=== PATIENT | female | born 1930 | race Caucasian/White ===

== ENCOUNTER 2021-02-22 14:07 | Inpatient (IN) | payer OTHER ==
[2021-02-22] MEDS ORDERED: ACETAMINOPHEN 1000 MG/100 ML VIAL IVPB ONE (15:46)
[2021-02-22] MEDS ORDERED: SODIUM CHLORIDE 1,402 ML IV ONE (15:46)
[2021-02-22] MEDS ORDERED: TRIAMCINOLONE ACET 0.1% OINT 15 GM TUBE TP ONE (16:10)
[2021-02-22 16:13] LABS: BASO % 0.5 % (0-2.0); EOS % 5.9 % (0-4.5); HEMATOCRIT 19.5 % (32.4-45.2); LYMPH % 21.3 % (8-40); MCHC 29.6 g/dl (32.0-36.0); MEAN CELL VOLUME 63.6 fl (80-96); MEAN PLT VOLUME 8.4 fl (7.5-11.1); MONO % 11.9 % (3.8-10.2); NEUT % 60.4 % (42.8-82.8); PLATELET COUNT 416 10^3/uL (134-434); RBC 3.07 M/mm3 (3.60-5.2); RDW 21.2 % (11.6-15.6); WHITE BLOOD COUNT 7.3 K/mm3 (4.0-10.0)
[2021-02-22 16:21] LABS: INR 1.05 (0.83-1.09); PROTHROMBIN TIME (PATIENT) 11.8 SEC (9.7-13.0)
[2021-02-22 16:23] LABS: MCH 18.8 pg (25.7-33.7)
[2021-02-22 16:24] LABS: ACTIVATED PTT 24.5 SECONDS (25.2-36.5)
[2021-02-22 16:25] LABS: HEMOGLOBIN 5.8 GM/dL (10.7-15.3)
[2021-02-22 16:26] LABS: EPI CELLS 34 /uL (0-25.1); HYALINE CASTS 3 /uL (0-3.1); PH,URINE 5.5 (5.0-8.0); URINE APPEARANCE CLOUDY; URINE BACTERIA >9,000 /uL (0-1359); URINE BILIRUBIN NEGATIVE (NEGATIVE); URINE COLOR YELLOW; URINE GLUCOSE (UA) NEGATIVE (NEGATIVE); URINE KETONE TRACE (NEGATIVE); URINE LEUK ESTERASE 1+ (NEGATIVE); URINE NITRITE NEGATIVE (NEGATIVE); URINE PROTEIN NEGATIVE (NEGATIVE); URINE UROBILINOGEN 0.2 mg/dL (0.2-1.0); URINE WBC 65 /uL (0-25.8)
[2021-02-22 16:36] LABS: CHLORIDE 109 mmol/L (98-107); SODIUM 140 mmol/L (136-145)
[2021-02-22 16:38] LABS: CALCIUM 7.9 mg/dL (8.5-10.1)
[2021-02-22 16:39] LABS: ALBUMIN 1.7 g/dl (3.4-5.0); ANION GAP 4 MMOL/L (8-16); BLOOD UREA NITROGEN 26.7 mg/dL (7-18); CO2 27 mmol/L (21-32); GLUCOSE,RANDOM 98 mg/dL (74-106); MAGNESIUM 2.3 mg/dL (1.8-2.4)
[2021-02-22 16:42] LABS: CREATININE 0.8 mg/dL (0.55-1.3); SGOT/AST 17 U/L (15-37); SGPT/ALT 11 U/L (13-61)
[2021-02-22 16:44] LABS: ALK PHOS 68 U/L (45-117); BILIRUBIN,TOTAL 0.2 mg/dL (0.2-1); TOT PROT 5.8 g/dl (6.4-8.2)
[2021-02-22] MEDS ORDERED: ACETAMINOPHEN INJECTION 100 ML IVPB ONE (16:44)
[2021-02-22] MEDS ORDERED: AZITHROMYCIN IVPB 500 MG in DEXTROSE 5%-WATER - 250 ML IVPB ONE (16:56)
[2021-02-22] MEDS ORDERED: CEFTRIAXONE 1,000 MG in DEXTROSE 5%-WATER - 50 ML IVPB ONE (16:56)
[2021-02-22] MEDS ORDERED: CEFTRIAXONE 1 GM/50 ML BAG ONE (17:16)
[2021-02-22] MEDS ORDERED: AZITHROMYCIN IVPB 500 MG/250 ML BAG IVPB ONE (17:16)
[2021-02-22] MEDS ORDERED: ALBUTEROL SO4 2.5/IPRATROPIUM 0.5 INH SOL 3 ML VIAL.NEB. NEB ONE ×2 (17:26→18:03)
[2021-02-22 18:01] LABS: ANISOCYTOSIS 3+; MACROCYTOSIS 1+; OVALOCYTE 1+; PLATELET ESTIMATE NORMAL
[2021-02-22 18:50] LABS: URINE RBC 19.5 /uL (0-23.9)
[2021-02-22] MEDS ORDERED: ACETAMINOPHEN 1000 MG/100 ML VIAL IVPB PRN (20:34)
[2021-02-22] MEDS ORDERED: PANTOPRAZOLE SODIUM 40 MG VIAL IVPUSH SCH (22:00)
[2021-02-22] MEDS ORDERED: ALBUTEROL SO4 2.5/IPRATROPIUM 0.5 INH SOL 3 ML VIAL.NEB. NEB PRN (22:56)
[2021-02-23 03:41] VITALS: BMI 24.6
[2021-02-23 08:45] LABS: BASO % 0.6 % (0-2.0); EOS % 5.7 % (0-4.5); HEMATOCRIT 29.1 % (32.4-45.2); HEMOGLOBIN 9.4 GM/dL (10.7-15.3); LYMPH % 15.4 % (8-40); MCHC 32.4 g/dl (32.0-36.0); MEAN CELL VOLUME 70.8 fl (80-96); MEAN PLT VOLUME 8.9 fl (7.5-11.1); MONO % 8.5 % (3.8-10.2); NEUT % 69.8 % (42.8-82.8); PLATELET COUNT 359 10^3/uL (134-434); RBC 4.11 M/mm3 (3.60-5.2); WHITE BLOOD COUNT 8.4 K/mm3 (4.0-10.0)
[2021-02-23 08:59] LABS: CALCIUM 7.7 mg/dL (8.5-10.1)
[2021-02-23 09:03] LABS: CREATININE 0.6 mg/dL (0.55-1.3)
[2021-02-23] MEDS ORDERED: PT OWN MED DRAWER 7, Y5N ONE ×3 (09:11→22:31)
[2021-02-23] MEDS: MULTIVITAMINS THER W-MINERALS COMBO TABLET (FP) PO SCH (09:21)
[2021-02-23] MEDS: OXYBUTYNIN CHLORIDE 5 MG TABLET PO SCH ×2 (09:21→22:34)
[2021-02-23] MEDS: FERROUS SO4 325 MG TABLET (FP) PO SCH (09:21)
[2021-02-23] MEDS: metoPROLOL SUCCINATE 25 MG TAB.SR.24H (FP) PO SCH (09:21)
[2021-02-23] MEDS ORDERED: FAMOTIDINE 20 MG TABLET PO SCH (10:00)
[2021-02-23] MEDS: POLYETHYLENE GLYCOL (HEALTHYLAX) 3350 17 GM PACKET PO SCH ×2 (14:36→22:34)
[2021-02-23] MEDS: CLOTRIMAZOLE 1% CREAM TP SCH ×2 (14:36→22:35)
[2021-02-23] MEDS ORDERED: cefTRIAXone SODIUM 1 GM VIAL ONE (15:20)
[2021-02-23] MEDS ORDERED: DEXTROSE 5%-WATER - 50 ML IVPB ONE (15:20)
[2021-02-23] MEDS: CEFTRIAXONE 1 GM in DEXTROSE 5%-WATER - 50 ML IVPB SCH (15:25)
[2021-02-23] MEDS ORDERED: SODIUM CHLORIDE 1,000 ML IV SCH (16:00)
[2021-02-23] MEDS ORDERED: TRIAMCINOLONE ACET 0.1% OINT 15 GM TUBE TP ONE (16:10)
[2021-02-23] MEDS: AZITHROMYCIN IVPB 500 MG/250 ML BAG IVPB SCH (17:03)
[2021-02-23] MEDS ORDERED: DOCUSATE SODIUM 100 MG CAPSULE (FP) PO SCH (22:00)
[2021-02-23] MEDS: ATORVASTATIN CA 10 MG TABLET (FP) PO SCH (22:34)
[2021-02-24] MEDS: POLYETHYLENE GLYCOL (HEALTHYLAX) 3350 17 GM PACKET PO SCH ×3 (06:28→22:05)
[2021-02-24 10:05] LABS: BASO % 0.4 % (0-2.0); EOS % 5.2 % (0-4.5); HEMATOCRIT 30.4 % (32.4-45.2); HEMOGLOBIN 9.6 GM/dL (10.7-15.3); LYMPH % 13.4 % (8-40); MCHC 31.4 g/dl (32.0-36.0); MEAN CELL VOLUME 73.1 fl (80-96); MEAN PLT VOLUME 8.8 fl (7.5-11.1); MONO % 7.3 % (3.8-10.2); NEUT % 73.7 % (42.8-82.8); PLATELET COUNT 396 10^3/uL (134-434); RBC 4.16 M/mm3 (3.60-5.2); RDW 26.7 % (11.6-15.6); RETICULOCYTES 3.01 % (0.5-1.5); WHITE BLOOD COUNT 8.5 K/mm3 (4.0-10.0)
[2021-02-24] MEDS ORDERED: PT OWN MED DRAWER 7, Y5N ONE ×2 (10:07→22:02)
[2021-02-24] MEDS ORDERED: DEXTROSE 5%-WATER - 50 ML IVPB ONE (10:08)
[2021-02-24] MEDS ORDERED: cefTRIAXone SODIUM 1 GM VIAL ONE (10:08)
[2021-02-24 10:15] LABS: INR 1.12 (0.83-1.09); PROTHROMBIN TIME (PATIENT) 12.6 SEC (9.7-13.0)
[2021-02-24] MEDS: CEFTRIAXONE 1 GM in DEXTROSE 5%-WATER - 50 ML IVPB SCH (10:20)
[2021-02-24] MEDS: metoPROLOL SUCCINATE 25 MG TAB.SR.24H (FP) PO SCH (10:22)
[2021-02-24] MEDS: CLOTRIMAZOLE 1% CREAM TP SCH ×2 (10:22→20:50)
[2021-02-24] MEDS: FERROUS SO4 325 MG TABLET (FP) PO SCH (10:22)
[2021-02-24] MEDS: MULTIVITAMINS THER W-MINERALS COMBO TABLET (FP) PO SCH (10:22)
[2021-02-24] MEDS: OXYBUTYNIN CHLORIDE 5 MG TABLET PO SCH ×2 (10:22→22:04)
[2021-02-24] MEDS: PANTOPRAZOLE 40 MG TABLET PO SCH (10:22)
[2021-02-24] MEDS: AZITHROMYCIN IVPB 500 MG/250 ML BAG IVPB SCH ×2 (10:24→11:58)
[2021-02-24] MEDS ORDERED: IRON SUCROSE INJECTION 200 MG in SODIUM CHLORIDE 90 ML IVPB ONE (17:00)
[2021-02-24] MEDS ORDERED: PERMETHRIN 5% TOPICAL CREAM 60 GM TUBE TP ONE (19:01)
[2021-02-24] MEDS: ATORVASTATIN CA 10 MG TABLET (FP) PO SCH (22:05)
[2021-02-25] MEDS: POLYETHYLENE GLYCOL (HEALTHYLAX) 3350 17 GM PACKET PO SCH ×3 (06:03→21:23)
[2021-02-25 08:07] LABS: CARCINOEMBRYONIC ANTIGEN 14.9 ng/mL (0.0-4.7)
[2021-02-25 10:06] LABS: BASO % 0.5 % (0-2.0); EOS % 1.9 % (0-4.5); HEMATOCRIT 33.2 % (32.4-45.2); HEMOGLOBIN 10.5 GM/dL (10.7-15.3); LYMPH % 10.8 % (8-40); MCH 22.9 pg (25.7-33.7); MCHC 31.6 g/dl (32.0-36.0); MEAN CELL VOLUME 72.2 fl (80-96); MEAN PLT VOLUME 8.4 fl (7.5-11.1); MONO % 6.8 % (3.8-10.2); PLATELET COUNT 426 10^3/uL (134-434); RDW 27.5 % (11.6-15.6); WHITE BLOOD COUNT 8.9 K/mm3 (4.0-10.0)
[2021-02-25] MEDS ORDERED: PT OWN MED DRAWER 7, Y5N ONE ×2 (10:17→21:18)
[2021-02-25 10:18] LABS: CALCIUM 8.1 mg/dL (8.5-10.1)
[2021-02-25 10:20] LABS: BLOOD UREA NITROGEN 10.9 mg/dL (7-18)
[2021-02-25 10:22] LABS: CREATININE 0.6 mg/dL (0.55-1.3)
[2021-02-25] MEDS: OXYBUTYNIN CHLORIDE 5 MG TABLET PO SCH ×2 (10:24→21:23)
[2021-02-25] MEDS: CLOTRIMAZOLE 1% CREAM TP SCH ×2 (10:24→21:25)
[2021-02-25] MEDS: metoPROLOL SUCCINATE 25 MG TAB.SR.24H (FP) PO SCH (10:24)
[2021-02-25] MEDS: FERROUS SO4 325 MG TABLET (FP) PO SCH (10:24)
[2021-02-25] MEDS: MULTIVITAMINS THER W-MINERALS COMBO TABLET (FP) PO SCH (10:24)
[2021-02-25] MEDS: PANTOPRAZOLE 40 MG TABLET PO SCH (10:24)
[2021-02-25] MEDS: ATORVASTATIN CA 10 MG TABLET (FP) PO SCH (21:25)
[2021-02-26] MEDS: POLYETHYLENE GLYCOL (HEALTHYLAX) 3350 17 GM PACKET PO SCH ×4 (05:22→21:50)
[2021-02-26] MEDS: OXYBUTYNIN CHLORIDE 5 MG TABLET PO SCH ×2 (09:09→21:49)
[2021-02-26] MEDS: metoPROLOL SUCCINATE 25 MG TAB.SR.24H (FP) PO SCH (09:09)
[2021-02-26] MEDS: MULTIVITAMINS THER W-MINERALS COMBO TABLET (FP) PO SCH (09:09)
[2021-02-26] MEDS: FERROUS SO4 325 MG TABLET (FP) PO SCH (09:09)
[2021-02-26] MEDS: CLOTRIMAZOLE 1% CREAM TP SCH ×2 (09:10→21:50)
[2021-02-26] MEDS: PANTOPRAZOLE 40 MG TABLET PO SCH (09:10)
[2021-02-26 09:22] LABS: BASO % 0.4 % (0-2.0); EOS % 4.8 % (0-4.5); HEMATOCRIT 30.1 % (32.4-45.2); HEMOGLOBIN 9.8 GM/dL (10.7-15.3); LYMPH % 14.2 % (8-40); MCH 22.8 pg (25.7-33.7); MCHC 32.4 g/dl (32.0-36.0); MEAN CELL VOLUME 70.5 fl (80-96); MEAN PLT VOLUME 8.4 fl (7.5-11.1); MONO % 9.6 % (3.8-10.2); PLATELET COUNT 398 10^3/uL (134-434); RBC 4.27 M/mm3 (3.60-5.2); RDW 28.3 % (11.6-15.6); WHITE BLOOD COUNT 7.6 K/mm3 (4.0-10.0)
[2021-02-26 09:43] LABS: BLOOD UREA NITROGEN 8.3 mg/dL (7-18)
[2021-02-26 09:46] LABS: CREATININE 0.5 mg/dL (0.55-1.3)
[2021-02-26 12:02] LABS: ANISOCYTOSIS 1+; MACROCYTOSIS 0; OVALOCYTE 2+; PLATELET ESTIMATE NORMAL
[2021-02-26 20:07] LABS: GLIADIN ANTIBODY IGA 15 units (0-19); GLIADIN ANTIBODY IGG 3 units (0-19); TRANSGLUTAMINASE IGG 7 U/mL (0-5)
[2021-02-26] MEDS ORDERED: PT OWN MED DRAWER 7, Y5N ONE (20:40)
[2021-02-26] MEDS: ATORVASTATIN CA 10 MG TABLET (FP) PO SCH (21:49)
[2021-02-27 05:29] VITALS: BP 138/72; PULSE 84; TEMP 98.1
[2021-02-27] MEDS: POLYETHYLENE GLYCOL (HEALTHYLAX) 3350 17 GM PACKET PO SCH (05:53)
== END 2021-02-27 10:46 | DRG 811 ==
LOC: JER 14:07 → JERBED 16:51 → J6S 02-23 00:53
PROVIDERS: ADMIT Internal Medicine; ATTEND Internal Medicine
PROC: 30233N1 Transfusion of Nonautologous Red Blood Cells into Peripheral Vein, Percutaneous Approach (ICD-10-PCS; principal; 2021-02-22)
DX: D50.9 Iron deficiency anemia, unspecified (principal); R53.2 Functional quadriplegia; N39.0 Urinary tract infection, site not specified; E88.09 Other disorders of plasma-protein metabolism, not elsewhere classified; E83.51 Hypocalcemia; K21.9 Gastro-esophageal reflux disease without esophagitis; F03.90 Unspecified dementia, unspecified severity, without behavioral disturbance, psychotic disturbance, mood disturbance, and anxiety; I73.9 Peripheral vascular disease, unspecified; F25.9 Schizoaffective disorder, unspecified; F32.9 Major depressive disorder, single episode, unspecified; E78.5 Hyperlipidemia, unspecified; K63.89 Other specified diseases of intestine; K59.00 Constipation, unspecified; B86 Scabies
CPT/HCPCS: 36415; 36430; 36511; 71045-TC-FY; 80048; 80053; 81003; 82105; 82272; 82378; 82550; 82728; 82784; 83516; 83540; 83550; 83605; 83735; 84155; 84165; 84484; 85025; 85045; 85610; 85730; 86140; 86334; 86850; 86900; 86901; 86922; 87040; 87086; 93005; 93010; 99285-25; C9803; J0131; J1756; P9038; P9058; U0003; U0005

== ENCOUNTER 2021-10-05 22:22 | Inpatient (IN) | payer OTHER ==
[2021-10-05 23:45] LABS: BASO % 0.7 % (0-2.0); EOS % 4.9 % (0-4.5); HEMATOCRIT 18.5 % (32.4-45.2); LYMPH % 18.6 % (8-40); MCHC 29.8 g/dl (32.0-36.0); MEAN PLT VOLUME 7.8 fl (7.5-11.1); MONO % 12.1 % (3.8-10.2); NEUT % 63.7 % (42.8-82.8); PLATELET COUNT 576 10^3/uL (134-434); RBC 2.77 M/mm3 (3.60-5.2); RDW 22.3 % (11.6-15.6); WHITE BLOOD COUNT 6.7 K/mm3 (4.0-10.0)
[2021-10-05 23:50] LABS: HEMOGLOBIN 5.5 GM/dL (10.7-15.3)
[2021-10-05 23:55] LABS: INR 1.07 (0.83-1.09); PROTHROMBIN TIME (PATIENT) 12.3 SEC (9.7-13.0)
[2021-10-05 23:58] LABS: ACTIVATED PTT 26.5 SECONDS (25.2-36.5)
[2021-10-06 00:02] LABS: CALCIUM 8.3 mg/dL (8.5-10.1)
[2021-10-06 00:03] LABS: BLOOD UREA NITROGEN 32.7 mg/dL (7-18)
[2021-10-06 00:06] LABS: CREATININE 0.8 mg/dL (0.55-1.3)
[2021-10-06] MEDS ORDERED: DEXAMETHASONE SOD PHOSPHATE 4 MG/1 ML VIAL IVPUSH ONE (04:10)
[2021-10-06] MEDS ORDERED: ACETAMINOPHEN INJECTION 100 ML IVPB ONE (05:50)
[2021-10-06] MEDS ORDERED: ACETAMINOPHEN 1000 MG/100 ML BAG IVPB ONE (05:54)
[2021-10-06] MEDS ORDERED: GLUCAGON 1 MG KIT IM ONE (05:56)
[2021-10-06 06:04] LABS: ANISOCYTOSIS 3+
[2021-10-06] MEDS ORDERED: SODIUM CHLORIDE 250 ML IV STA (06:28)
[2021-10-06] MEDS ORDERED: GLUCAGON 1 MG KIT ONE (06:31)
[2021-10-06] MEDS ORDERED: DEXAMETHASONE SOD PHOSPHATE 10 MG/1 ML VIAL ONE ×2 (06:31→10:22)
[2021-10-06 08:10] LABS: BASO % 0.4 % (0-2.0); EOS % 1.9 % (0-4.5); HEMOGLOBIN 8.7 GM/dL (10.7-15.3); MCH 22.3 pg (25.7-33.7); MEAN CELL VOLUME 74.2 fl (80-96); MEAN PLT VOLUME 8.7 fl (7.5-11.1); MONO % 1.5 % (3.8-10.2); NEUT % 86.2 % (42.8-82.8); PLATELET COUNT 658 10^3/uL (134-434); RBC 3.91 M/mm3 (3.60-5.2); RDW 26.1 % (11.6-15.6); WHITE BLOOD COUNT 14.1 K/mm3 (4.0-10.0)
[2021-10-06 08:29] LABS: CALCIUM 8.7 mg/dL (8.5-10.1)
[2021-10-06 08:30] LABS: ALBUMIN 2.2 g/dl (3.4-5.0); BLOOD UREA NITROGEN 29.4 mg/dL (7-18)
[2021-10-06 08:33] LABS: CREATININE 0.9 mg/dL (0.55-1.3)
[2021-10-06 08:35] LABS: TOT PROT 6.7 g/dl (6.4-8.2)
[2021-10-06 10:25] LABS: EPI CELLS 14 /uL (0-25.1); HYALINE CASTS 13 /uL (0-3.1); PH,URINE 8.5 (5.0-8.0); URINE APPEARANCE CLOUDY; URINE BACTERIA >9,000 /uL (0-1359); URINE BILIRUBIN NEGATIVE (NEGATIVE); URINE COLOR YELLOW; URINE GLUCOSE (UA) NEGATIVE (NEGATIVE); URINE KETONE NEGATIVE (NEGATIVE); URINE LEUK ESTERASE 1+ (NEGATIVE); URINE NITRITE NEGATIVE (NEGATIVE); URINE PROTEIN 2+ (NEGATIVE); URINE RBC 101 /uL (0-23.9); URINE UROBILINOGEN 0.2 mg/dL (0.2-1.0); URINE WBC 431 /uL (0-25.8)
[2021-10-06 15:56] LABS: HEMATOCRIT 32.8 % (32.4-45.2); HEMOGLOBIN 10.7 GM/dL (10.7-15.3); MCH 24.1 pg (25.7-33.7); MCHC 32.5 g/dl (32.0-36.0); MEAN CELL VOLUME 74.1 fl (80-96); PLATELET COUNT 567 10^3/uL (134-434); RBC 4.43 M/mm3 (3.60-5.2); RDW 25.2 % (11.6-15.6); WHITE BLOOD COUNT 8.5 K/mm3 (4.0-10.0)
[2021-10-06 16:09] LABS: CALCIUM 8.8 mg/dL (8.5-10.1)
[2021-10-06 16:10] LABS: ALBUMIN 2.2 g/dl (3.4-5.0); BLOOD UREA NITROGEN 27.4 mg/dL (7-18)
[2021-10-06 16:13] LABS: CREATININE 0.8 mg/dL (0.55-1.3)
[2021-10-06 16:14] LABS: TOT PROT 6.7 g/dl (6.4-8.2)
[2021-10-06] MEDS ORDERED: REMDESIVIR 200 MG in SODIUM CHLORIDE 250 ML IVPB ONE (16:30)
[2021-10-06 17:09] LABS: ANISOCYTOSIS 1+; MACROCYTOSIS 1+; PLATELET ESTIMATE INCREASED
[2021-10-07] MEDS: DEXAMETHASONE SOD PHOSPHATE 4 MG/1 ML VIAL IVPUSH SCH (09:47)
[2021-10-07 10:29] LABS: BASO % 0.1 % (0-2.0); HEMOGLOBIN 10.2 GM/dL (10.7-15.3); LYMPH % 10.1 % (8-40); MCH 24.3 pg (25.7-33.7); MCHC 32.7 g/dl (32.0-36.0); MEAN CELL VOLUME 74.2 fl (80-96); MONO % 6.2 % (3.8-10.2); NEUT % 83.6 % (42.8-82.8); PLATELET COUNT 607 10^3/uL (134-434); RBC 4.18 M/mm3 (3.60-5.2); RDW 24.3 % (11.6-15.6); WHITE BLOOD COUNT 8.2 K/mm3 (4.0-10.0)
[2021-10-07] MEDS: REMDESIVIR 100 MG in SODIUM CHLORIDE 250 ML IVPB SCH (10:32)
[2021-10-07 10:57] LABS: CALCIUM 8.6 mg/dL (8.5-10.1)
[2021-10-07 10:58] LABS: ALBUMIN 1.9 g/dl (3.4-5.0); BLOOD UREA NITROGEN 32.5 mg/dL (7-18)
[2021-10-07 11:00] LABS: BILIRUBIN,TOTAL 0.4 mg/dL (0.2-1)
[2021-10-07 11:02] LABS: CREATININE 0.7 mg/dL (0.55-1.3)
[2021-10-07 11:16] VITALS: BMI 24.2
[2021-10-08] MEDS: DEXAMETHASONE SOD PHOSPHATE 4 MG/1 ML VIAL IVPUSH SCH (10:21)
[2021-10-08] MEDS: REMDESIVIR 100 MG in SODIUM CHLORIDE 250 ML IVPB SCH (10:21)
[2021-10-08] MEDS: FAMOTIDINE 20 MG TABLET PO SCH (12:57)
[2021-10-09] MEDS: DEXAMETHASONE SOD PHOSPHATE 4 MG/1 ML VIAL IVPUSH SCH (11:12)
[2021-10-09] MEDS: FAMOTIDINE 20 MG TABLET PO SCH (11:12)
[2021-10-09] MEDS: REMDESIVIR 100 MG in SODIUM CHLORIDE 250 ML IVPB SCH (11:12)
[2021-10-10] MEDS: DEXAMETHASONE 4 MG TABLET (FP) PO SCH (08:33)
[2021-10-10 08:56] LABS: BASO % 0.1 % (0-2.0); EOS % 0.1 % (0-4.5); HEMATOCRIT 34.4 % (32.4-45.2); HEMOGLOBIN 11.3 GM/dL (10.7-15.3); LYMPH % 11.3 % (8-40); MCH 24.4 pg (25.7-33.7); MCHC 32.9 g/dl (32.0-36.0); MEAN CELL VOLUME 74.1 fl (80-96); MEAN PLT VOLUME 8.1 fl (7.5-11.1); MONO % 11.3 % (3.8-10.2); NEUT % 77.2 % (42.8-82.8); PLATELET COUNT 578 10^3/uL (134-434); RBC 4.64 M/mm3 (3.60-5.2); RDW 26.1 % (11.6-15.6); WHITE BLOOD COUNT 9.4 K/mm3 (4.0-10.0)
[2021-10-10 09:38] LABS: CALCIUM 8.7 mg/dL (8.5-10.1)
[2021-10-10 09:39] LABS: ALBUMIN 2.2 g/dl (3.4-5.0)
[2021-10-10 09:42] LABS: BILIRUBIN,TOTAL 0.6 mg/dL (0.2-1); CREATININE 0.7 mg/dL (0.55-1.3); TOT PROT 5.6 g/dl (6.4-8.2)
[2021-10-10 09:54] LABS: ANISOCYTOSIS 2+; MACROCYTOSIS 1+
[2021-10-10] MEDS: REMDESIVIR 100 MG in SODIUM CHLORIDE 250 ML IVPB SCH (10:07)
[2021-10-10] MEDS: FAMOTIDINE 20 MG TABLET PO SCH (10:07)
[2021-10-11] MEDS: DEXAMETHASONE 4 MG TABLET (FP) PO SCH (09:18)
[2021-10-11] MEDS: FAMOTIDINE 20 MG TABLET PO SCH (09:18)
[2021-10-11] MEDS: HEPARIN NA (PORCINE) 5,000 UNITS/ML 1ML VIAL SQ SCH (22:54)
[2021-10-12] MEDS: DEXAMETHASONE 4 MG TABLET (FP) PO SCH (08:53)
[2021-10-12] MEDS: FAMOTIDINE 20 MG TABLET PO SCH (09:53)
[2021-10-12] MEDS: HEPARIN NA (PORCINE) 5,000 UNITS/ML 1ML VIAL SQ SCH ×2 (09:53→21:31)
[2021-10-13] MEDS: DEXAMETHASONE 4 MG TABLET (FP) PO SCH (08:56)
[2021-10-13] MEDS: HEPARIN NA (PORCINE) 5,000 UNITS/ML 1ML VIAL SQ SCH ×2 (10:11→21:31)
[2021-10-13] MEDS: FAMOTIDINE 20 MG TABLET PO SCH (10:11)
[2021-10-13] MEDS ORDERED: POLYETHYLENE GLYCOL 3350 119 GM BTL PO PRN (11:09)
[2021-10-14] MEDS: DEXAMETHASONE 4 MG TABLET (FP) PO SCH (08:57)
[2021-10-14] MEDS: HEPARIN NA (PORCINE) 5,000 UNITS/ML 1ML VIAL SQ SCH ×2 (09:00→21:28)
[2021-10-14] MEDS: FAMOTIDINE 20 MG TABLET PO SCH (09:00)
[2021-10-14] MEDS: metoPROLOL SUCCINATE 25 MG TAB.SR.24H (FP) PO SCH (09:16)
[2021-10-14 13:43] LABS: BASO % 0.1 % (0-2.0); HEMATOCRIT 35.9 % (32.4-45.2); LYMPH % 7.2 % (8-40); MCH 23.8 pg (25.7-33.7); MCHC 30.6 g/dl (32.0-36.0); MEAN CELL VOLUME 77.8 fl (80-96); MONO % 2.9 % (3.8-10.2); NEUT % 89.8 % (42.8-82.8); PLATELET COUNT 325 10^3/uL (134-434); RBC 4.61 M/mm3 (3.60-5.2); RDW 26.4 % (11.6-15.6); WHITE BLOOD COUNT 7.4 K/mm3 (4.0-10.0)
[2021-10-14 13:59] LABS: CALCIUM 8.7 mg/dL (8.5-10.1)
[2021-10-14 14:00] LABS: ALBUMIN 2.1 g/dl (3.4-5.0); BLOOD UREA NITROGEN 24.7 mg/dL (7-18)
[2021-10-14 14:03] LABS: CREATININE 0.7 mg/dL (0.55-1.3)
[2021-10-14 14:04] LABS: TOT PROT 5.4 g/dl (6.4-8.2)
[2021-10-14 14:05] LABS: BILIRUBIN,TOTAL 0.4 mg/dL (0.2-1)
[2021-10-14 14:11] LABS: ANISOCYTOSIS 3+; MACROCYTOSIS 1+
[2021-10-15] MEDS: DEXAMETHASONE 4 MG TABLET (FP) PO SCH (09:18)
[2021-10-15] MEDS: FAMOTIDINE 20 MG TABLET PO SCH (09:18)
[2021-10-15] MEDS: metoPROLOL SUCCINATE 25 MG TAB.SR.24H (FP) PO SCH (09:18)
[2021-10-15] MEDS: HEPARIN NA (PORCINE) 5,000 UNITS/ML 1ML VIAL SQ SCH ×2 (09:18→21:58)
[2021-10-16] MEDS: DEXAMETHASONE 4 MG TABLET (FP) PO SCH (08:46)
[2021-10-16] MEDS: HEPARIN NA (PORCINE) 5,000 UNITS/ML 1ML VIAL SQ SCH ×2 (08:59→22:45)
[2021-10-16] MEDS: FAMOTIDINE 20 MG TABLET PO SCH (08:59)
[2021-10-16] MEDS: metoPROLOL SUCCINATE 25 MG TAB.SR.24H (FP) PO SCH (08:59)
[2021-10-17] MEDS: metoPROLOL SUCCINATE 25 MG TAB.SR.24H (FP) PO SCH (10:25)
[2021-10-17] MEDS: HEPARIN NA (PORCINE) 5,000 UNITS/ML 1ML VIAL SQ SCH ×2 (10:25→22:51)
[2021-10-17] MEDS: FAMOTIDINE 20 MG TABLET PO SCH (10:25)
[2021-10-18] MEDS: metoPROLOL SUCCINATE 25 MG TAB.SR.24H (FP) PO SCH (10:34)
[2021-10-18] MEDS: HEPARIN NA (PORCINE) 5,000 UNITS/ML 1ML VIAL SQ SCH (10:34)
[2021-10-18] MEDS: FAMOTIDINE 20 MG TABLET PO SCH (10:34)
[2021-10-18] MEDS ORDERED: MELATONIN 5 MG TABLETS PO PRN (12:28)
[2021-10-19] MEDS: FAMOTIDINE 20 MG TABLET PO SCH (10:20)
[2021-10-19] MEDS: metoPROLOL SUCCINATE 25 MG TAB.SR.24H (FP) PO SCH (10:20)
[2021-10-19 13:30] VITALS: BP 136/75; PULSE 102; TEMP 99.1
== END 2021-10-19 20:21 | DRG 177 ==
LOC: JER 22:22 → JERBED 23:31 → INTOOBSV 23:31 → J6S 10-06 16:39 → OBSVTOIN 10-09 11:59
PROVIDERS: ADMIT Internal Medicine; ATTEND Internal Medicine
PROC: 30233N1 Transfusion of Nonautologous Red Blood Cells into Peripheral Vein, Percutaneous Approach (ICD-10-PCS; principal; 2021-10-06)
PROC: 3E0333Z Introduction of Anti-inflammatory into Peripheral Vein, Percutaneous Approach (ICD-10-PCS; 2021-10-06)
PROC: XW033E5 Introduction of Remdesivir Anti-infective into Peripheral Vein, Percutaneous Approach, New Technology Group 5 (ICD-10-PCS; 2021-10-06)
DX: U07.1 COVID-19 (principal); J12.82 Pneumonia due to coronavirus disease 2019; J96.01 Acute respiratory failure with hypoxia; N13.8 Other obstructive and reflux uropathy; I10 Essential (primary) hypertension; E78.5 Hyperlipidemia, unspecified; D64.9 Anemia, unspecified; K21.9 Gastro-esophageal reflux disease without esophagitis; I73.89 Other specified peripheral vascular diseases; F25.1 Schizoaffective disorder, depressive type; F03.90 Unspecified dementia, unspecified severity, without behavioral disturbance, psychotic disturbance, mood disturbance, and anxiety; K63.89 Other specified diseases of intestine; K59.00 Constipation, unspecified; K64.8 Other hemorrhoids; N32.81 Overactive bladder; Z66 Do not resuscitate
CPT/HCPCS: 36415; 36430; 71045-TC-FY; 80048; 80053; 81003; 82272; 82962; 83605; 85025; 85610; 85730; 86078; 86140; 86850; 86900; 86901; 86922; 87040; 87086; 87186; 93005; 93010; 99285-25; C9399; C9803-CS; G0378; J1644; P9058; U0003; U0005